=== PATIENT | female | born 1975 | race African-American/Black ===

== ENCOUNTER 2016-09-26 07:42 | Emergency (ER) | payer OTHER ==
[~2016-09-26] VITALS: Ht 170.1 cm; Wt 88.5 kg
[~2016-09-26 07:42] MED LIST: AMOXICILLIN500 M2 PO; BACTRIM DS 8001 TA1 PO; DAYPRO600 M1 PO; DAYTIME COLD PO; FLAGYL500 MG PO; HYDROCHLOROTHIA25 M1 PO; HYDROCODONE BIT1 T11 PO; IRON90 MG PO; LISINOPRIL AND1 TA2 PO; LISINOPRIL AND1 TAB PO; LISINOPRIL5 MG PO; MOTRIN800 MG PO; NAPROSYN500 MG PO; NATURE'S BLEND F1 MG PO; NKHM; NORVASC10 MG PO; PREDNICOT20 MG PO; PREDNISONE20 M1 PO; PYRIDIUM200 MG PO; ROBAXIN500 MG PO; ROBAXIN750 MG PO; ROBITUSSIN DM 105 ML PO; TESSALON PERLE100 M1 PO; ULTRAM50 MG PO; VITAMIN D5000 UNI1 PO; ZITHROMAX Z PA250 MG PO; ZITHROMAX250 MG PO
[2016-09-26 07:46] VITALS: BP 136/87
[2016-09-26] MEDS ORDERED: BACTRIM DS 8001 TA1 PO (08:20)
[2016-09-26] MEDS ORDERED: NAPROSYN500 MG PO (08:22)
== END 2016-09-26 08:37 | disposition home or self-care (01) ==
LOC: ED 07:42
DX: L02.215 Cutaneous abscess of perineum (principal); Z79.899 Other long term (current) drug therapy; Z91.030 Bee allergy status; Z88.1 Allergy status to other antibiotic agents

== ENCOUNTER 2016-11-28 17:56 | Emergency (ER) | payer OTHER ==
[~2016-11-28] VITALS: Ht 170.1 cm; Wt 93.0 kg
[2016-11-28 19:02] LABS: BASO # 0.1 10*3/uL (0.0-0.1); BASO % 1.1 % (0.0-1.0); EOS # 0.2 10*3/uL (0.0-0.4); EOS % 2.6 % (1.0-4.0); HEMOGLOBIN 9.6 g/dl (12.0-16.0); LYMPH # 1.7 10*3/uL (1.3-4.4); MEAN CELL VOLUME 77.7 fl (81.0-99.0); MEAN CORPUSCULAR HGB 24.1 pg (27.0-31.0); MEAN PLATELET VOLUME 10.6 fl (9.6-12.3); MONO # 0.4 10*3/uL (0.1-1.0); MONO % 6.2 % (3.0-9.0); NEUT # 4.3 10*3/uL (2.3-7.9); NEUT % 64.8 % (47.0-73.0); PLATELET COUNT AUTOMATED 257 10*3/uL (130-400); RED BLOOD COUNT 3.99 10*6/uL (4.10-5.10); WHITE BLOOD COUNT 6.6 10*3/uL (4.8-10.8)
[2016-11-28 19:15] LABS: INTERNATIONAL NORM RATIO 0.9 (2.0-3.5); PROTHROMBIN TIME 9.9 SECONDS (9.0-12.4)
[2016-11-28 19:18] LABS: ALBUMIN 3.4 gm/dl (3.1-4.5); ALKALINE PHOSPHATASE 82 U/L (45-117); BILIRUBIN, TOTAL 0.3 mg/dl (0.2-1.0); BUN 11 mg/dl (7-24); C-REACTIVE PROTEIN < 0.29 MG/DL (0-0.3); CARBON DIOXIDE 29 mmol/L (21-32); CHLORIDE 107 mmol/L (98-107); CPK 120 U/L (26-192); EST GLOM FILT AFRICAN AMERICAN > 60 ml/min; GLUCOSE 89 mg/dL (65-99); MAGNESIUM 1.9 mg/dL (1.5-2.1); SGOT/AST 12 IU/L (3-35); SGPT/ALT 17 U/L (12-78); SODIUM 145 mmol/L (136-145); TOTAL PROTEIN 6.6 gm/dL (6.4-8.2); TROPONIN I < 0.015 ng/ml (<0.045)
[2016-11-28 20:08] VITALS: BP 143/87
[2016-11-28] MEDS ORDERED: Motrin,Rufen800 MG PO (20:11)
[2016-11-28] MEDS ORDERED: NORCO 5-325 TA1 EACH PO (20:11)
== END 2016-11-28 21:33 | disposition home or self-care (01) ==
LOC: ED 17:56
PROVIDERS: Emergency Medicine
DX: S30.0XXA Contusion of lower back and pelvis, initial encounter (principal); S70.01XA Contusion of right hip, initial encounter; S80.11XA Contusion of right lower leg, initial encounter; Z91.030 Bee allergy status; Z88.1 Allergy status to other antibiotic agents; Z79.899 Other long term (current) drug therapy; D50.9 Iron deficiency anemia, unspecified; V49.9XXA Car occupant (driver) (passenger) injured in unspecified traffic accident, initial encounter; Y93.89 Activity, other specified; Y92.413 State road as the place of occurrence of the external cause; Y99.8 Other external cause status

== ENCOUNTER 2017-03-12 11:32 | Emergency (ER) | payer OTHER ==
[~2017-03-12] VITALS: Ht 170.1 cm; Wt 93.0 kg
[~2017-03-12 11:32] MED LIST changes: +Motrin,Rufen800 MG PO; +NORCO 5-325 TA1 EACH PO
[2017-03-12 11:36] VITALS: BP 142/70
[2017-03-12 11:50] LABS: BILIRUBIN NEGATIVE (NEGATIVE); BLOOD TRACE-INTACT (NEGATIVE); CLARITY CLEAR (CLEAR); COLOR YELLOW (YELLOW); GLUCOSE NEGATIVE (NEGATIVE); KETONE TRACE (NEGATIVE); LEUKO ESTERASE NEGATIVE (NEGATIVE); NITRITE NEGATIVE (NEGATIVE); SPECIFIC GRAVITY 1.025 (1.005-1.030)
[2017-03-12 11:57] LABS: BACTERIA TRACE; WBC 0-2 wbc/hpf (0-5)
[2017-03-12] MEDS ORDERED: NAPROSYN500 MG PO (14:16)
[2017-03-12] MEDS ORDERED: CYCLOBENZAPRINE10 MG PO (14:16)
[2017-03-12] MEDS ORDERED: MACROBID100 M1 PO (14:18)
== END 2017-03-12 14:21 | disposition home or self-care (01) ==
LOC: ED 11:32
PROVIDERS: Nurse Practitioner Family
DX: R30.0 Dysuria (principal); R10.30 Lower abdominal pain, unspecified; Z98.890 Other specified postprocedural states; Z98.51 Tubal ligation status; Z79.899 Other long term (current) drug therapy; Z91.030 Bee allergy status; Z88.1 Allergy status to other antibiotic agents

== ENCOUNTER 2018-03-30 17:15 | Emergency (ER) | payer OTHER ==
[~2018-03-30] VITALS: Ht 170.1 cm; Wt 83.9 kg
[2018-03-30 17:15] VITALS: BP 152/81
[~2018-03-30 17:15] MED LIST changes: +CYCLOBENZAPRINE10 MG PO; +MACROBID100 M1 PO
[2018-03-30] MEDS ORDERED: NAPROSYN500 MG PO ×2 (17:20→18:20)
[2018-04-23] MEDS ORDERED: MACROBID100 M1 PO (11:29)
[2018-04-23] MEDS ORDERED: Zofran4 MG SL (11:29)
== END 2018-03-30 18:05 | disposition home or self-care (01) ==
LOC: ED 17:15
DX: S90.32XA Contusion of left foot, initial encounter (principal); R03.0 Elevated blood-pressure reading, without diagnosis of hypertension; Z88.1 Allergy status to other antibiotic agents; Z91.030 Bee allergy status; Z79.899 Other long term (current) drug therapy; W22.8XXA Striking against or struck by other objects, initial encounter; Y93.89 Activity, other specified; Y92.89 Other specified places as the place of occurrence of the external cause; Y99.8 Other external cause status

== ENCOUNTER 2018-09-04 20:14 | Emergency (ER) | payer OTHER ==
[~2018-09-04] VITALS: Wt 85.3 kg
[2018-09-04 20:14] VITALS: BP 151/87
[~2018-09-04 20:14] MED LIST changes: -LISINOPRIL AND1 TA2 PO; +ZESTORETIC 10-1 EACH PO; +Zofran4 MG SL
[2018-09-04] MEDS ORDERED: Motrin,Rufen800 MG PO (22:56)
[2018-09-04] MEDS ORDERED: CYCLOBENZAPRINE5 M3 PO (22:56)
== END 2018-09-04 23:39 | disposition home or self-care (01) ==
LOC: ED 20:14
DX: S29.012A Strain of muscle and tendon of back wall of thorax, initial encounter (principal); F17.200 Nicotine dependence, unspecified, uncomplicated; Z91.030 Bee allergy status; Z88.1 Allergy status to other antibiotic agents; Z79.899 Other long term (current) drug therapy; X50.1XXA Overexertion from prolonged static or awkward postures, initial encounter; Y93.89 Activity, other specified; Y92.89 Other specified places as the place of occurrence of the external cause; Y99.8 Other external cause status

== ENCOUNTER 2019-02-03 21:53 | Emergency (ER) | payer OTHER ==
[~2019-02-03] VITALS: Ht 170.1 cm; Wt 83.9 kg
[~2019-02-03 21:53] MED LIST changes: +CYCLOBENZAPRINE5 M3 PO
[2019-02-03 21:55] VITALS: BP 200/93
[2019-02-03] MEDS ORDERED: NORVASC5 MG PO (21:56)
[2019-02-03] MEDS ORDERED: VIBRAMYCIN100 MG PO (23:07)
[2019-02-04] MEDS ORDERED: Motrin,Rufen800 MG PO (07:29)
== END 2019-02-03 23:37 | disposition home or self-care (01) ==
LOC: ED 21:53
DX: S91.312A Laceration without foreign body, left foot, initial encounter (principal); F17.200 Nicotine dependence, unspecified, uncomplicated; Z91.030 Bee allergy status; Z88.1 Allergy status to other antibiotic agents; Z79.899 Other long term (current) drug therapy; W22.8XXA Striking against or struck by other objects, initial encounter; Y93.89 Activity, other specified; Y92.89 Other specified places as the place of occurrence of the external cause; Y99.8 Other external cause status

== ENCOUNTER 2019-02-04 06:36 | Emergency (ER) | payer OTHER ==
[~2019-02-04] VITALS: Ht 170.1 cm; Wt 83.9 kg
[~2019-02-04 06:36] MED LIST changes: +NORVASC5 MG PO; +VIBRAMYCIN100 MG PO
[2019-02-04 06:37] VITALS: BP 157/95
[2019-02-04] MEDS ORDERED: Motrin,Rufen800 MG PO (07:29)
== END 2019-02-04 07:42 | disposition home or self-care (01) ==
LOC: ED 06:36
DX: S90.852A Superficial foreign body, left foot, initial encounter (principal); Z88.1 Allergy status to other antibiotic agents; Z79.899 Other long term (current) drug therapy; Z91.030 Bee allergy status; X58.XXXA Exposure to other specified factors, initial encounter; Y93.89 Activity, other specified; Y92.89 Other specified places as the place of occurrence of the external cause; Y99.8 Other external cause status

== ENCOUNTER 2019-02-20 11:44 | Emergency (ER) | payer OTHER ==
[~2019-02-20] VITALS: Ht 170.1 cm; Wt 83.9 kg
[2019-02-20 11:45] VITALS: BP 170/90
[2019-02-20] MEDS ORDERED: AUGMENTIN 875-875 MG PO (12:26)
[2019-02-20] MEDS ORDERED: PREDNISONE20 M1 PO (12:26)
[2019-02-20] MEDS ORDERED: ROBITUSSIN DM 101 OZ PO (12:26)
== END 2019-02-20 12:41 | disposition home or self-care (01) ==
LOC: ED 11:44
DX: J01.90 Acute sinusitis, unspecified (principal); I10 Essential (primary) hypertension; Z91.030 Bee allergy status; Z88.1 Allergy status to other antibiotic agents; Z79.899 Other long term (current) drug therapy

== ENCOUNTER 2019-05-18 11:33 | Emergency (ER) | payer SELFPAY ==
[~2019-05-18] VITALS: Ht 170.1 cm; Wt 83.9 kg
[~2019-05-18 11:33] MED LIST changes: +AUGMENTIN 875-875 MG PO; +ROBITUSSIN DM 101 OZ PO
[2019-05-18 13:36] VITALS: BP 170/94
[2019-05-18] MEDS ORDERED: TYLENOL325 M1 PO (14:05)
[2019-05-18] MEDS ORDERED: NAPROSYN500 MG PO (14:05)
[2019-05-18] MEDS ORDERED: CYCLOBENZAPRINE10 MG PO (14:05)
== END 2019-05-18 14:10 | disposition home or self-care (01) ==
LOC: ED 11:33
DX: M25.512 Pain in left shoulder (principal); M54.6 Pain in thoracic spine; M54.2 Cervicalgia; Z79.899 Other long term (current) drug therapy; Z91.030 Bee allergy status; Z88.1 Allergy status to other antibiotic agents; X58.XXXA Exposure to other specified factors, initial encounter; Y93.89 Activity, other specified; Y92.89 Other specified places as the place of occurrence of the external cause; Y99.8 Other external cause status

== ENCOUNTER 2019-06-21 05:43 | Inpatient (IN) | payer OTHER ==
[~2019-06-21] VITALS: Ht 170.1 cm; Wt 96.1 kg
[~2019-06-21 05:43] MED LIST changes: +TYLENOL325 M1 PO
[2019-06-21 05:47] VITALS: BP 170/85
[2019-06-21 08:19] LABS: BASO # 0.1 10*3/uL (0.0-0.1); BASO % 2.2 % (0.0-1.0); EOS # 0.2 10*3/uL (0.0-0.4); EOS % 5.6 % (1.0-4.0); HEMATOCRIT 34.2 % (37.0-47.0); HEMOGLOBIN 10.4 g/dl (12.0-16.0); LYMPH # 1.4 10*3/uL (1.3-4.4); LYMPH % 33.2 % (27.0-41.0); MEAN CELL VOLUME 76.3 fl (81.0-99.0); MEAN CORPUSCULAR HGB 23.2 pg (27.0-31.0); MEAN CORPUSCULAR HGB CONC 30.4 g/dl (33.0-37.0); MEAN PLATELET VOLUME 10.4 fl (9.6-12.3); MONO # 0.5 10*3/uL (0.1-1.0); MONO % 11.7 % (3.0-9.0); NEUT # 1.9 10*3/uL (2.3-7.9); NEUT % 47.1 % (47.0-73.0); PLATELET COUNT AUTOMATED 238 10*3/uL (130-400); RED BLOOD COUNT 4.48 10*6/uL (4.10-5.10); RED CELL DISTRI WIDTH 18.4 % (0-14.5); WHITE BLOOD COUNT 4.1 10*3/uL (4.8-10.8)
[2019-06-21 08:35] LABS: ALBUMIN 3.2 gm/dl (3.1-4.5); ALKALINE PHOSPHATASE 76 U/L (45-117); BUN 8 mg/dl (7-24); CHLORIDE 110 mmol/L (98-107); CREATININE 0.64 mg/dL (0.55-1.02); POTASSIUM 3.8 mmol/L (3.5-5.1); SGOT/AST 10 IU/L (3-35); SGPT/ALT 19 U/L (12-78); SODIUM 141 mmol/L (136-145); TOTAL PROTEIN 6.5 gm/dL (6.4-8.2)
[2019-06-21 08:39] LABS: BETA-HCG, QUANT < 1.0 mIU/mL (1-3); TROPONIN I < 0.015 ng/ml (<0.045)
[2019-06-21 10:46] LABS: BILIRUBIN NEGATIVE (NEGATIVE); BLOOD NEGATIVE (NEGATIVE); CLARITY SL CLOUDY (CLEAR); COLOR YELLOW (YELLOW); GLUCOSE NEGATIVE (NEGATIVE); KETONE NEGATIVE (NEGATIVE); LEUKO ESTERASE NEGATIVE (NEGATIVE); NITRITE NEGATIVE (NEGATIVE); PH 7.5 (5.0-9.0); UROBILINOGEN 0.2 E.U./dl (0.2-1.0)
[2019-06-21 11:13] LABS: BACTERIA TRACE; RBC 0-2 rbc/hpf (0-2); WBC 0-2 wbc/hpf (0-5)
[2019-06-21 11:15] VITALS: BP 180/95
[2019-06-21 16:00] VITALS: BP 145/80
[2019-06-21 20:00] VITALS: BP 152/79
[2019-06-22] VITALS: BP 135/74
[2019-06-22 08:00] VITALS: BP 152/80
[2019-06-22 16:00] VITALS: BP 140/72
[2019-06-22 20:00] VITALS: BP 153/85
[2019-06-23] VITALS: BP 151/69
[2019-06-23 08:00] VITALS: BP 143/80
[2019-06-23] MEDS ORDERED: TAMIFLU 75MG CA75 MG PO (14:25)
== END 2019-06-23 15:07 | disposition home or self-care (01) | DRG 422 ==
LOC: ED 05:43 → EDHOLD 10:36 → 5E 10:36
PROVIDERS: Internal Medicine; ADMIT Internal Medicine
DX: E86.0 Dehydration (principal); J11.1 Influenza due to unidentified influenza virus with other respiratory manifestations; I10 Essential (primary) hypertension; Z98.51 Tubal ligation status; Z88.1 Allergy status to other antibiotic agents; Z91.030 Bee allergy status

== ENCOUNTER 2019-08-02 13:20 | Emergency (ER) | payer OTHER ==
[~2019-08-02] VITALS: Ht 170.1 cm; Wt 95.3 kg
[~2019-08-02 13:20] MED LIST changes: +TAMIFLU 75MG CA75 MG PO
[2019-08-02 13:22] VITALS: BP 160/100
[2019-08-02 14:17] LABS: BASO % 1.2 % (0.0-1.0); EOS % 1.2 % (1.0-4.0); HEMATOCRIT 33.1 % (37.0-47.0); HEMOGLOBIN 10.2 g/dl (12.0-16.0); LYMPH # 0.7 10*3/uL (1.3-4.4); LYMPH % 22.6 % (27.0-41.0); MEAN CELL VOLUME 75.1 fl (81.0-99.0); MEAN CORPUSCULAR HGB 23.1 pg (27.0-31.0); MEAN CORPUSCULAR HGB CONC 30.8 g/dl (33.0-37.0); MEAN PLATELET VOLUME 9.7 fl (9.6-12.3); MONO # 0.6 10*3/uL (0.1-1.0); MONO % 17.1 % (3.0-9.0); NEUT # 1.9 10*3/uL (2.3-7.9); NEUT % 57.3 % (47.0-73.0); PLATELET COUNT AUTOMATED 277 10*3/uL (130-400); RED BLOOD COUNT 4.41 10*6/uL (4.10-5.10); RED CELL DISTRI WIDTH 17.7 % (0-14.5); WHITE BLOOD COUNT 3.3 10*3/uL (4.8-10.8)
[2019-08-02 14:32] LABS: ALBUMIN 3.6 gm/dl (3.1-4.5); ALKALINE PHOSPHATASE 80 U/L (45-117); BUN 5 mg/dl (7-24); CHLORIDE 106 mmol/L (98-107); CREATININE 0.76 mg/dL (0.55-1.02); POTASSIUM 3.2 mmol/L (3.5-5.1); SGOT/AST 16 IU/L (3-35); SGPT/ALT 21 U/L (12-78); SODIUM 139 mmol/L (136-145); TOTAL PROTEIN 7.2 gm/dL (6.4-8.2)
[2019-08-02] MEDS ORDERED: ROBITUSSIN DM 101 OZ PO (15:19)
== END 2019-08-02 15:17 | disposition home or self-care (01) ==
LOC: ED 13:20
PROVIDERS: Nurse Practitioner Family
DX: B34.9 Viral infection, unspecified (principal); E87.6 Hypokalemia; I10 Essential (primary) hypertension; Z91.030 Bee allergy status; Z88.8 Allergy status to other drugs, medicaments and biological substances; Z79.899 Other long term (current) drug therapy

== ENCOUNTER 2019-09-27 20:35 | Emergency (ER) | payer OTHER ==
[~2019-09-27] VITALS: Ht 170.1 cm; Wt 86.2 kg
[2019-09-27 21:09] LABS: BILIRUBIN NEGATIVE (NEGATIVE); BLOOD NEGATIVE (NEGATIVE); CLARITY CLEAR (CLEAR); COLOR YELLOW (YELLOW); GLUCOSE NEGATIVE (NEGATIVE); KETONE NEGATIVE (NEGATIVE); SPECIFIC GRAVITY 1.015 (1.005-1.030)
[2019-09-27 21:10] LABS: LEUKO ESTERASE NEGATIVE (NEGATIVE); NITRITE NEGATIVE (NEGATIVE); PH 7.5 (5.0-9.0); UROBILINOGEN 0.2 E.U./dl (0.2-1.0)
[2019-09-27 21:15] LABS: BACTERIA 2+; EPITHELIAL CELLS TNTC; MUCOUS 1+
[2019-09-27 21:28] LABS: BASO # 0.1 10*3/uL (0.0-0.1); BASO % 1.2 % (0.0-1.0); EOS # 0.1 10*3/uL (0.0-0.4); EOS % 2.4 % (1.0-4.0); HEMATOCRIT 30.3 % (37.0-47.0); LYMPH # 2.1 10*3/uL (1.3-4.4); LYMPH % 41.5 % (27.0-41.0); MEAN CELL VOLUME 73.9 fl (81.0-99.0); MEAN CORPUSCULAR HGB 22.4 pg (27.0-31.0); MEAN CORPUSCULAR HGB CONC 30.4 g/dl (33.0-37.0); MEAN PLATELET VOLUME 9.5 fl (9.6-12.3); MONO # 0.4 10*3/uL (0.1-1.0); MONO % 8.7 % (3.0-9.0); NEUT # 2.3 10*3/uL (2.3-7.9); PLATELET COUNT AUTOMATED 280 10*3/uL (130-400); RED CELL DISTRI WIDTH 18.4 % (0-14.5); WHITE BLOOD COUNT 4.9 10*3/uL (4.8-10.8)
[2019-09-27 21:43] LABS: ALKALINE PHOSPHATASE 77 U/L (45-117); BUN 9 mg/dl (7-24); CHLORIDE 107 mmol/L (98-107); CREATININE 0.74 mg/dL (0.55-1.02); LIPASE 107 U/L (73-393); POTASSIUM 3.3 mmol/L (3.5-5.1); SGOT/AST 15 IU/L (3-35); SGPT/ALT 18 U/L (12-78); SODIUM 140 mmol/L (136-145); TOTAL PROTEIN 6.4 gm/dL (6.4-8.2)
[2019-09-27 22:15] VITALS: BP 155/80
[2019-09-28] MEDS ORDERED: NORCO 5-325 TA1 EACH PO (00:25)
[2019-09-28] MEDS ORDERED: Motrin,Rufen800 MG PO (00:25)
== END 2019-09-28 00:40 | disposition home or self-care (01) ==
LOC: ED 20:35
PROVIDERS: Emergency Medicine Emergency Medical Services
DX: R10.31 Right lower quadrant pain (principal); Z91.030 Bee allergy status; Z88.8 Allergy status to other drugs, medicaments and biological substances; Z79.899 Other long term (current) drug therapy

== ENCOUNTER → 2019-09-29 | Outpatient (CLI) | payer OTHER | END | disposition home or self-care (01) | LOC: US 13:49 | DX: D25.0 Submucous leiomyoma of uterus (principal); N83.209 Unspecified ovarian cyst, unspecified side ==

== ENCOUNTER 2020-06-10 20:12 | Emergency (ER) | payer OTHER ==
[~2020-06-10] VITALS: Ht 170.1 cm; Wt 95.3 kg
[~2020-06-10 20:12] MED LIST changes: +TESSALON PERLE100 MG PO
[2020-06-10 20:38] VITALS: BP 190/96
== END 2020-06-10 22:15 | disposition left against medical advice (07) ==
LOC: ED 20:12
DX: S99.921A Unspecified injury of right foot, initial encounter (principal); Z53.21 Procedure and treatment not carried out due to patient leaving prior to being seen by health care provider; X58.XXXA Exposure to other specified factors, initial encounter; Y93.89 Activity, other specified; Y92.89 Other specified places as the place of occurrence of the external cause; Y99.8 Other external cause status

== ENCOUNTER 2020-09-21 19:36 | Emergency (ER) | payer OTHER ==
[~2020-09-21] VITALS: Wt 93.4 kg
[2020-09-21 19:42] VITALS: BP 153/94
[2020-09-21] MEDS ORDERED: ROBAXIN-750750 MG PO (20:00)
[2020-09-21] MEDS ORDERED: NAPROSYN500 MG PO (20:00)
== END 2020-09-21 20:19 | disposition home or self-care (01) ==
LOC: ED 19:36
DX: S39.012A Strain of muscle, fascia and tendon of lower back, initial encounter (principal); S29.012A Strain of muscle and tendon of back wall of thorax, initial encounter; I10 Essential (primary) hypertension; Z91.030 Bee allergy status; Z88.8 Allergy status to other drugs, medicaments and biological substances; Z79.899 Other long term (current) drug therapy; Z98.51 Tubal ligation status; Z98.890 Other specified postprocedural states; X58.XXXA Exposure to other specified factors, initial encounter; Y93.89 Activity, other specified; Y92.89 Other specified places as the place of occurrence of the external cause; Y99.8 Other external cause status

== ENCOUNTER 2020-12-19 15:19 | Emergency (ER) | payer OTHER ==
[~2020-12-19 15:19] MED LIST changes: +ROBAXIN-750750 MG PO
== END 2020-12-19 15:55 | disposition left against medical advice (07) ==
LOC: ED 15:19
DX: M25.579 Pain in unspecified ankle and joints of unspecified foot (principal); Z53.21 Procedure and treatment not carried out due to patient leaving prior to being seen by health care provider

== ENCOUNTER → 2022-02-21 | Outpatient (CLI) | payer OTHER ==
[~2022-02-21] MED LIST changes: +IRON325 M1 PO; +LYSTEDA650 MG PO; +VITAMIN D3125 MC1 PO
[2022-02-21 13:02] LABS: HEMATOCRIT 36.4 % (37.0-47.0); MEAN CELL VOLUME 73.7 fl (81.0-99.0); MEAN CORPUSCULAR HGB 21.5 pg (27.0-31.0); MEAN CORPUSCULAR HGB CONC 29.1 g/dl (33.0-37.0); PLATELET COUNT AUTOMATED 331 10*3/uL (130-400); RED BLOOD COUNT 4.94 10*6/uL (4.10-5.10); WHITE BLOOD COUNT 7.9 10*3/uL (4.8-10.8)
[2022-02-21 13:17] LABS: MANUAL DIFF REFLEX YES
[2022-02-21 13:30] LABS: BASOPHILS 2 % (0-1); MICROCYTOSIS SLIGHT; TARGET CELLS MODERATE; TOTAL CELLS COUNTED 100 #CELLS
[2022-02-21 13:31] LABS: PLATELET SUFFICIENCY NORMAL (NORMAL)
== END ==
LOC: LAB 00:25
PROVIDERS: ATTEND Internal Medicine Nephrology
DX: D64.9 Anemia, unspecified (principal)

== ENCOUNTER → 2022-03-30 | Outpatient (CLI) | payer OTHER ==
[2022-03-30 12:09] LABS: BASO # 0.1 10*3/uL (0.0-0.1); BASO % 1.1 % (0.0-1.0); EOS # 0.1 10*3/uL (0.0-0.4); EOS % 2.1 % (1.0-4.0); LYMPH # 1.2 10*3/uL (1.3-4.4); LYMPH % 23.2 % (27.0-41.0); MEAN CORPUSCULAR HGB 25.5 pg (27.0-31.0); MEAN CORPUSCULAR HGB CONC 31.1 g/dl (33.0-37.0); MEAN PLATELET VOLUME 9.3 fl (9.6-12.3); MONO # 0.3 10*3/uL (0.1-1.0); MONO % 5.7 % (3.0-9.0); NEUT # 3.5 10*3/uL (2.3-7.9); NEUT % 67.5 % (47.0-73.0); PLATELET COUNT AUTOMATED 303 10*3/uL (130-400); RED BLOOD COUNT 4.27 10*6/uL (4.10-5.10); RED CELL DISTRI WIDTH 24.6 % (0-14.5); WHITE BLOOD COUNT 5.3 10*3/uL (4.8-10.8)
[2022-03-30 12:26] LABS: ALKALINE PHOSPHATASE 76 U/L (45-117); BUN 9 mg/dl (7-24); CHLORIDE 111 mmol/L (98-107); IRON 19 ug/dL (50-170); POTASSIUM 4.1 mmol/L (3.5-5.1); SGOT/AST 10 IU/L (3-35); SGPT/ALT 18 U/L (12-78); SODIUM 143 mmol/L (136-145); TOTAL PROTEIN 6.4 gm/dL (6.4-8.2)
[2022-03-30 12:31] LABS: THYROID STIM HORMONE (HS) 0.395 uIU/ml (0.358-4.75)
[2022-03-30 13:04] LABS: FERRITIN 10.7 ng/mL (10.0-291.0)
== END | disposition home or self-care (01) ==
LOC: LAB 02:11
PROVIDERS: ATTEND Internal Medicine Nephrology
DX: N93.9 Abnormal uterine and vaginal bleeding, unspecified (principal)

== ENCOUNTER 2022-05-26 16:30 | Emergency (ER) | payer OTHER ==
[~2022-05-26] VITALS: Wt 81.6 kg
[2022-05-26 17:32] LABS: MEAN CELL VOLUME 76.9 fl (81.0-99.0); MEAN CORPUSCULAR HGB 23.8 pg (27.0-31.0); MEAN PLATELET VOLUME 9.8 fl (9.6-12.3); PLATELET COUNT AUTOMATED 296 10*3/uL (130-400); RED CELL DISTRI WIDTH 16.5 % (0-14.5); WHITE BLOOD COUNT 4.5 10*3/uL (4.8-10.8)
[2022-05-26 17:34] LABS: MANUAL DIFF REFLEX YES
[2022-05-26 17:48] LABS: ALKALINE PHOSPHATASE 61 U/L (46-116); BUN 8 mg/dl (9-23); CHLORIDE 107 mmol/L (98-107); CREATININE 0.63 mg/dL (0.55-1.02); POTASSIUM 3.2 mmol/L (3.4-5.1); SODIUM 140 mmol/L (136-145); TOTAL PROTEIN 5.7 gm/dL (6.0-8.0)
[2022-05-26 17:53] LABS: BASOPHILS 2 % (0-1); PLATELET SUFFICIENCY NORMAL (NORMAL); POLYCHROMASIA SLIGHT; TOTAL CELLS COUNTED 100 #CELLS
[2022-05-26 17:54] LABS: BURR CELLS FEW; TARGET CELLS FEW
[2022-05-26 18:20] LABS: SGPT/ALT 13 U/L (12-78)
[2022-05-26 18:21] LABS: B-hCG (QUALITATIVE) NEGATIVE (NEGATIVE)
[2022-05-26 20:46] VITALS: BP 151/73
[2022-05-26 21:17] VITALS: BP 134/73
[2022-05-27 01:34] VITALS: BP 143/73
[2022-05-27 02:02] VITALS: BP 157/75
== END 2022-05-27 01:46 | disposition home or self-care (01) ==
LOC: ED 16:30
PROVIDERS: Physician Assistant
DX: D64.9 Anemia, unspecified (principal); E87.6 Hypokalemia; E44.1 Mild protein-calorie malnutrition; Z88.1 Allergy status to other antibiotic agents; Z98.51 Tubal ligation status; Z98.890 Other specified postprocedural states

== ENCOUNTER 2022-07-02 13:21 | Emergency (ER) | payer OTHER ==
[~2022-07-02] VITALS: Ht 170.1 cm; Wt 80.3 kg
[2022-07-02 13:38] VITALS: BP 147/89
[2022-07-02] MEDS ORDERED: CYCLOBENZAPRINE5 M3 PO (15:16)
[2022-07-02] MEDS ORDERED: TRAMADOL HCL50 MG PO (15:16)
[2022-07-02] MEDS ORDERED: Motrin,Rufen800 MG PO (15:16)
== END 2022-07-02 15:52 | disposition home or self-care (01) ==
LOC: ED 13:21
DX: M54.16 Radiculopathy, lumbar region (principal); Z88.5 Allergy status to narcotic agent; Z98.890 Other specified postprocedural states; Z98.51 Tubal ligation status

== ENCOUNTER → 2022-07-27 | Outpatient (CLI) | payer OTHER ==
[~2022-07-27] MED LIST changes: +TRAMADOL HCL50 MG PO
[2022-07-27 13:09] LABS: BASO # 0.1 10*3/uL (0.0-0.1); BASO % 0.8 % (0.0-1.0); EOS # 0.1 10*3/uL (0.0-0.4); EOS % 1.2 % (1.0-4.0); HEMATOCRIT 31.2 % (37.0-47.0); LYMPH # 1.1 10*3/uL (1.3-4.4); LYMPH % 17.2 % (27.0-41.0); MEAN CELL VOLUME 70.4 fl (81.0-99.0); MEAN CORPUSCULAR HGB 19.4 pg (27.0-31.0); MEAN CORPUSCULAR HGB CONC 27.6 g/dl (33.0-37.0); MEAN PLATELET VOLUME 10.2 fl (9.6-12.3); MONO # 0.3 10*3/uL (0.1-1.0); MONO % 4.5 % (3.0-9.0); NEUT # 4.9 10*3/uL (2.3-7.9); NEUT % 75.8 % (47.0-73.0); PLATELET COUNT AUTOMATED 435 10*3/uL (130-400); RED BLOOD COUNT 4.43 10*6/uL (4.10-5.10); RED CELL DISTRI WIDTH 21.4 % (0-14.5); WHITE BLOOD COUNT 6.5 10*3/uL (4.8-10.8)
== END | disposition home or self-care (01) ==
LOC: LAB 12:20
PROVIDERS: ATTEND Internal Medicine Nephrology
DX: D64.9 Anemia, unspecified (principal)

== ENCOUNTER → 2022-08-03 | Outpatient (CLI) | payer OTHER ==
[2022-08-02 14:18] LABS: HEMATOCRIT 30.4 % (37.0-47.0)
== END | disposition home or self-care (01) ==
LOC: TRNFUSION 00:39
PROVIDERS: ATTEND Internal Medicine Nephrology
DX: Z01.818 Encounter for other preprocedural examination (principal); D64.9 Anemia, unspecified

== ENCOUNTER → 2022-08-07 | Outpatient (CLI) | payer OTHER ==
[2022-08-07] VITALS (9 sets, daily range): BP systolic 147–159; BP diastolic 79–92
[2022-08-07 13:44] LABS: HEMATOCRIT 27.1 % (37.0-47.0)
== END | disposition home or self-care (01) ==
LOC: LAB 01:22 → TRNFUSION 01:22
PROVIDERS: ATTEND Internal Medicine Nephrology
DX: Z01.818 Encounter for other preprocedural examination (principal); D64.9 Anemia, unspecified

== ENCOUNTER → 2022-08-15 | Outpatient (CLI) | payer OTHER ==
[2022-08-15 15:05] LABS: BASO # 0.1 10*3/uL (0.0-0.1); BASO % 0.9 % (0.0-1.0); EOS # 0.1 10*3/uL (0.0-0.4); EOS % 0.9 % (1.0-4.0); HEMATOCRIT 37.8 % (37.0-47.0); LYMPH # 1.8 10*3/uL (1.3-4.4); LYMPH % 22.1 % (27.0-41.0); MEAN CELL VOLUME 71.9 fl (81.0-99.0); MEAN CORPUSCULAR HGB 21.5 pg (27.0-31.0); MEAN CORPUSCULAR HGB CONC 29.9 g/dl (33.0-37.0); MEAN PLATELET VOLUME 9.5 fl (9.6-12.3); MONO # 0.4 10*3/uL (0.1-1.0); MONO % 5.1 % (3.0-9.0); NEUT # 5.8 10*3/uL (2.3-7.9); NEUT % 70.8 % (47.0-73.0); PLATELET COUNT AUTOMATED 270 10*3/uL (130-400); RED BLOOD COUNT 5.26 10*6/uL (4.10-5.10); RED CELL DISTRI WIDTH 25.6 % (0-14.5); WHITE BLOOD COUNT 8.2 10*3/uL (4.8-10.8)
== END | disposition home or self-care (01) ==
LOC: LAB 14:37
PROVIDERS: ATTEND Internal Medicine Nephrology
DX: N92.1 Excessive and frequent menstruation with irregular cycle (principal); D64.9 Anemia, unspecified

== ENCOUNTER 2023-08-17 15:02 | Emergency (ER) | payer OTHER ==
[~2023-08-17 15:02] MED LIST changes: +METRONIDAZOLE500 M1 PO; +SEPTDS PO
[2023-08-17 15:19] VITALS: BP 112/87
[2023-08-17] MEDS ORDERED: Acetaminophen/Hydrocodone 5 MG/325 MG TABLET PO ONE (15:30)
== END 2023-08-17 16:45 | disposition home or self-care (01) ==
LOC: ED 15:02
DX: S80.11XA Contusion of right lower leg, initial encounter (principal); S81.831A Puncture wound without foreign body, right lower leg, initial encounter; I10 Essential (primary) hypertension; Z88.1 Allergy status to other antibiotic agents; Z98.51 Tubal ligation status; Z98.890 Other specified postprocedural states; W22.8XXA Striking against or struck by other objects, initial encounter; Y93.89 Activity, other specified; Y92.009 Unspecified place in unspecified non-institutional (private) residence as the place of occurrence of the external cause; Y99.0 Civilian activity done for income or pay

== ENCOUNTER → 2023-10-31 | Outpatient (CLI) | payer OTHER | END | disposition home or self-care (01) | LOC: RAD 08:05 | PROVIDERS: ATTEND Internal Medicine Nephrology | DX: M54.42 Lumbago with sciatica, left side (principal); M79.644 Pain in right finger(s) ==

== ENCOUNTER 2024-06-20 14:15 | Emergency (ER) | payer MEDICAID ==
[~2024-06-20] VITALS: Ht 170.1 cm; Wt 85.8 kg
[2024-06-20 14:43] VITALS: BP 155/80
[2024-06-20 15:20] LABS: BASO # 0.1 10*3/uL (0.0-0.1); BASO % 1.2 % (0.0-1.0); EOS # 0.2 10*3/uL (0.0-0.4); EOS % 3.9 % (1.0-4.0); HEMATOCRIT 41.7 % (37.0-47.0); MEAN CELL VOLUME 92.5 fl (81.0-99.0); MEAN CORPUSCULAR HGB 29.5 pg (27.0-31.0); MEAN CORPUSCULAR HGB CONC 31.9 g/dl (33.0-37.0); MEAN PLATELET VOLUME 10.1 fl (9.6-12.3); MONO # 0.4 10*3/uL (0.1-1.0); MONO % 7.7 % (3.0-9.0); NEUT # 3.1 10*3/uL (2.3-7.9); NEUT % 55.5 % (47.0-73.0); PLATELET COUNT AUTOMATED 207 10*3/uL (130-400); RED BLOOD COUNT 4.51 10*6/uL (4.10-5.10); RED CELL DISTRI WIDTH 14.5 % (0-14.5); WHITE BLOOD COUNT 5.6 10*3/uL (4.8-10.8)
[2024-06-20 15:30] LABS: ACT PARTIAL THROMBO TIME 29.4 SECONDS (20.0-32.1)
[2024-06-20 15:39] LABS: BUN 15 mg/dl (9-23); CHLORIDE 105 mmol/L (98-107); POTASSIUM 3.8 mmol/L (3.4-5.1)
== END 2024-06-20 15:52 | disposition home or self-care (01) ==
LOC: ED 14:15
PROVIDERS: Nurse Practitioner
DX: R22.42 Localized swelling, mass and lump, left lower limb (principal); I10 Essential (primary) hypertension; R10.2 Pelvic and perineal pain; Z88.1 Allergy status to other antibiotic agents; Z98.890 Other specified postprocedural states

== ENCOUNTER → 2024-08-18 | Outpatient (CLI) | payer MEDICAID | END | disposition home or self-care (01) | LOC: LAB 13:53 | PROVIDERS: ATTEND Internal Medicine Nephrology | DX: Z11.1 Encounter for screening for respiratory tuberculosis (principal); I10 Essential (primary) hypertension ==

== ENCOUNTER → 2024-09-19 | Outpatient (CLI) | payer MEDICAID | END | disposition home or self-care (01) | LOC: LAB 11:42 | PROVIDERS: ATTEND Internal Medicine Nephrology | DX: Z11.1 Encounter for screening for respiratory tuberculosis (principal) ==

== ENCOUNTER 2025-04-20 17:30 | Emergency (ER) | payer MEDICAID ==
[~2025-04-20] VITALS: Ht 170.1 cm; Wt 87.5 kg
[2025-04-20 17:35] VITALS: BP 186/82
[2025-04-20] MEDS ORDERED: ACETAMINOPHEN 325 MG TAB PO ONE (18:35)
[2025-04-20] MEDS ORDERED: METHOCARBAMOL 500 MG TAB PO ONE (18:35)
[2025-04-20] MEDS ORDERED: Acetaminophen/Hydrocodone 5 MG/325 MG TABLET PO ONE (18:35)
[2025-04-20] MEDS ORDERED: IBUPROFEN 600 MG TAB PO ONE (18:35)
== END 2025-04-20 19:39 | disposition home or self-care (01) ==
LOC: ED 17:30
DX: S92.911A Unspecified fracture of right toe(s), initial encounter for closed fracture (principal); I10 Essential (primary) hypertension; Z98.890 Other specified postprocedural states; Z88.1 Allergy status to other antibiotic agents; X58.XXXA Exposure to other specified factors, initial encounter; Y93.89 Activity, other specified; Y92.89 Other specified places as the place of occurrence of the external cause; Y99.8 Other external cause status